=== PATIENT | female | born 1995 | race American Indian/Alaskan Native ===

== ENCOUNTER 2022-03-26 15:50 | Emergency (ER) | payer SELFPAY ==
--- NOTE | 2022-03-26 17:03 | Emergency Department Report ---
ED Neck Pain/Injury HPI - General Chief Complaint: Chest Pain Stated Complaint: CHEST PAIN Time Seen by Provider: 03/26/22 17:02 Mode of arrival: Ambulatory Limitations: No Limitations - History of Present Illness Initial Comments: 26-year-old comes to the ER with left neck pain. She describes it as a tightening. It is worse with movement. She has no chest pain or shortness of breath. No fever or chills. She is sitting in her room eating grapes with her child on exam. No fall or trauma. MD Complaint: neck pain -: Gradual Place: home Radiation: left lateral Severity: mild Severity scale (0 -10): 2 Consistency: intermittent Improves With: none Worsens With: movement of extremity Associated Symptoms: none - Related Data Previous Rx's Medication Instructions Recorded Last Taken Type Ibuprofen [Motrin 600 MG tab] 600 mg PO Q8H PRN #30 tablet 05/04/16 Unknown Rx Multivitamin with Iron 1 each PO DAILY #30 tablet 05/04/16 Unknown Rx [Multivitamins with Iron] oxyCODONE /ACETAMINOPHEN [Percocet 1 tab PO Q6HR PRN #30 tablet 05/04/16 Unknown Rx 5/325] Amoxicillin/K Clav Tab [Augmentin 1 tab PO Q12HR #10 tab 05/07/16 Unknown Rx 875 mg] Cyclobenzaprine [Flexeril] 10 mg PO TID PRN #10 tablet 03/26/22 Unknown Rx Allergies Allergy/AdvReac Type Severity Reaction Status Date / Time No Known Allergies Allergy Verified 03/26/22 16:07 ED Review of Systems ROS: Stated complaint: CHEST PAIN Other details as noted in HPI Comment: All other systems reviewed and negative ED Past Medical Hx - Past Medical History Previous Medical History?: No Hx Hypertension: No Hx Diabetes: No Hx Deep Vein Thrombosis: No Hx Renal Disease: No Hx Sickle Cell Disease: No Hx Seizures: No Hx Asthma: No Hx COPD: No Hx HIV: No - Surgical History Past Surgical History?: No - Family History Family history: no significant - Social History Smoking Status: Never Smoker Substance Use Type: None - Medications Home Medications: Home Medications Medication Instructions Recorded Confirmed Last Taken Type Ibuprofen [Motrin 600 MG tab] 600 mg PO Q8H PRN #30 tablet 05/04/16 Unknown Rx Multivitamin with Iron 1 each PO DAILY #30 tablet 11/06/16 Unknown Rx [Multivitamins with Iron] oxyCODONE /ACETAMINOPHEN [Percocet 1 tab PO Q6HR PRN #30 tablet 05/04/16 Unknown Rx 5/325] Amoxicillin/K Clav Tab [Augmentin 1 tab PO Q12HR #10 tab 05/07/16 Unknown Rx 875 mg] Cyclobenzaprine [Flexeril] 10 mg PO TID PRN #10 tablet 03/26/22 Unknown Rx ED Physical Exam - General Limitations: No Limitations General appearance: alert, in no apparent distress - Head Head exam: Present: atraumatic, normocephalic - Eye Eye exam: Present: normal appearance - ENT ENT exam: Present: mucous membranes moist - Neck Neck exam: Present: normal inspection - Respiratory Respiratory exam: Present: normal lung sounds bilaterally. Absent: respiratory distress - Cardiovascular Cardiovascular Exam: Present: regular rate, normal rhythm. Absent: systolic murmur, diastolic murmur, rubs, gallop - GI/Abdominal GI/Abdominal exam: Present: soft, normal bowel sounds - Extremities Exam Extremities exam: Present: normal inspection - Back Exam Back exam: Present: normal inspection - Neurological Exam Neurological exam: Present: alert, oriented X3 - Psychiatric Psychiatric exam: Present: normal affect, normal mood - Skin Skin exam: Present: warm, dry, intact, normal color. Absent: rash ED Course Vital Signs 03/26/22 03/26/22 15:58 17:03 Temperature 98.3 F Pulse Rate 100 H Respiratory 16 18 Rate Blood Pressure 125/90 [Left] O2 Sat by Pulse 100 99 Oximetry ED Medical Decision Making - EKG Data -: EKG Interpreted by Ak EKG shows normal: sinus rhythm Rate: normal - EKG Data When compared to previous EKG there are: no significant change Interpretation: no acute changes - Medical Decision Making Vital Signs (72 hours) 03/26/22 03/26/22 15:58 17:03 Temperature 98.3 F Pulse Rate 100 H Respiratory 16 18 Rate Blood Pressure 125/90 [Left] O2 Sat by Pulse 100 99 Oximetry Patient neurologically intact. She has full range of motion of her neck. Patient requesting work note. Vital signs normal. Patient being discharged home with discharge plan of care including diet, activity, medications and follow-up. She verbalizes understanding of plan of care - Differential Diagnosis MUSCLULOSKELETAL PAIN Critical care attestation.: If time is entered above; I have spent that time in minutes in the direct care of this critically ill patient, excluding procedure time. ED Disposition Clinical Impression: Musculoskeletal pain Disposition: 01 HOME / SELF CARE / HOMELESS Is pt being admited?: No Does the pt Need Aspirin: No Condition: Stable Instructions: Musculoskeletal Pain Additional Instructions: MEDS ORDERED TODAY FOLLOW UP WITH PCP Prescriptions: Cyclobenzaprine [Flexeril] 10 mg PO TID PRN #10 tablet PRN Reason: Muscle Spasm Referrals: PRIMARY CARE, [Primary Care Provider] - 3-5 Days Forms: Work/School Release Form(ED)
[2022-03-26 17:32] VITALS: BP 122/78
--- NOTE | 2022-03-28 11:57 | Electrocardiograph Report ---
[facility] Test Date: 2022-03-26 Test Time: 16:00:47 Pat Name: KORINA GAONA Department: Room: Gender: F Leasing Associate: RAMOS : 1995 Requested By: BRIJESH GUZMAN Order Number: [id number] Reading MD: Colby Ni Measurements Intervals [place] Rate: 92 P: 59 UT: 170 QRS: 66 QRSD: 76 T: 58 QT: 338 QTc: 417 Interpretive Statements Sinus rhythm No previous ECG available for comparison Electronically Signed On 03-28-2022 8:57:23 PDT by Colby Ni
== END 2022-03-26 17:31 | disposition home or self-care (01) ==
LOC: ED 15:50
DX: M79.18 Myalgia, other site (principal); M54.2 Cervicalgia; R07.89 Other chest pain; Z79.899 Other long term (current) drug therapy
CPT/HCPCS: 93005; 99282